=== PATIENT | female | born 1965 | race Caucasian/White ===

== ENCOUNTER 2023-08-26 14:23 | Emergency (ER) | payer OTHER ==
[2023-08-26 15:22] VITALS: BP 147/69; PULSE 62; RESP 18; TEMP 98.4; BMI 25.6
== END 2023-08-26 15:45 | disposition home or self-care (01) ==
LOC: FER 14:23
DX: S99.912A Unspecified injury of left ankle, initial encounter (principal); X50.1XXA Overexertion from prolonged static or awkward postures, initial encounter
CPT/HCPCS: 73610-TC-LT-FY; 99283-25